=== PATIENT | male | born 1945 | race Caucasian/White ===

== ENCOUNTER 2018-10-25 08:06 | Emergency (ER) | payer MEDICARE, BC ==
[2018-10-25 08:13] VITALS: PULSE 68; RESP 18; TEMP 97; O2SAT 100
[2018-10-25 08:21] VITALS: BP 150/84
[2018-10-25] MEDS ORDERED: TETRACAINE HCL 0.5 % OPHTH 1 DROP SOL LEFTEYE ONE (08:30)
[2018-10-25] MEDS ORDERED: TETRACAINE HCL 0.5 % OPHTH 1 DROP SOL ONE (08:57)
== END 2018-10-25 09:55 | disposition home or self-care (01) | DRG 125 ==
LOC: ED 08:06
DX: T15.82XA Foreign body in other and multiple parts of external eye, left eye, initial encounter (principal); H10.32 Unspecified acute conjunctivitis, left eye
CPT/HCPCS: 99282; A9270-GY